=== PATIENT | female | born 2000 | race Caucasian/White ===

== ENCOUNTER 2019-10-07 14:02 | Emergency (ER) | payer OTHER ==
[~2019-10-07] VITALS: Ht 175.3 cm; Wt 70.6 kg
[2019-10-07] MEDS ORDERED: ONDANSETRON ODT 4 MG ONE (14:30)
--- NOTE | 2019-10-07 14:44 | NUR ---
PT WITH C/O RUQ/RLQ PAIN AND NAUSEA X4 DAYS, PT DENIES V/D. PT TO BP, CONT PULSE OX.ERMD IN TO EVAL PT ORDERES RECEIEVED
[2019-10-07 14:53] LABS: BASOPHILS # (AUTO) 0.03 x10^3/uL (0-0.3); BASOPHILS % (AUTO) 0 % (0-1); EOSINOPHILS # (AUTO) 0.11 x10^3/uL (0-0.8); EOSINOPHILS % (AUTO) 1 % (1-7); LYMPHOCYTES % (AUTO) 28 % (22-44); MD NO; MEAN CORPUSCULAR HEMOGLOBIN 27.3 pg (27.0-34.8); MEAN CORPUSCULAR HGB CONC 32.9 g/dL (32.4-35.8); MEAN CORPUSCULAR VOLUME 83.1 fL (80-100); MEAN PLATELET VOLUME 7.9 fL (7.4-10.4); MONOCYTES # (AUTO) 0.39 x10^3/uL (0-1.4); MONOCYTES % (AUTO) 5 % (2-9); NEUTROPHILS # (AUTO) 4.91 x10^3/uL (1.8-8.0); NEUTROPHILS % (AUTO) 65 % (42-75); PLATELET COUNT 233 x10^3/uL (130-400); RED CELL DISTRIBUTION WIDTH 15.6 % (9.6-15.2)
[2019-10-07] MEDS ORDERED: ONDANSETRON ODT 4 MG PO ONE (15:00)
--- NOTE | 2019-10-07 15:01 | NUR ---
PT MEDICATED PER AUG, UA SAMPLE COLLECTED AND SEND TO LAB
[2019-10-07 15:02] LABS: ALANINE AMINOTRANSFERASE 17 U/L (12-78); ALBUMIN 3.7 g/dL (3.4-5.0); ANION GAP 6 mmol/L (5-15); CALCIUM 8.5 mg/dL (8.5-10.1); CHLORIDE 109 mmol/L (98-107); CREATININE 0.71 mg/dL (0.55-1.02)
[2019-10-07 15:05] LABS: ALKALINE PHOSPHATASE 45 U/L (45-117); BILIRUBIN,TOTAL 0.7 mg/dL (0.2-1.0); TOTAL PROTEIN 7.4 g/dL (6.4-8.2)
[2019-10-07 15:23] LABS: HCG UR SG 1.013 (1.003-1.030); MICROSCOPIC NOT IND
[2019-10-07 15:29] LABS: CULTURE INDICATED? NO
[2019-10-07 16:00] VITALS: BP 111/69
== END 2019-10-07 18:29 | disposition home or self-care (01) ==
LOC: ED 15:05
DX: R10.11 Right upper quadrant pain (principal); R11.0 Nausea
CPT/HCPCS: 36415; 76700; 80053; 81003; 81025; 83690; 85025; 85379; 99284; Q0162